=== PATIENT | male | born 1995 | race Caucasian/White ===

== ENCOUNTER 2025-05-13 09:08 | Emergency (ER) | payer BC ==
[~2025-05-13] VITALS: Ht 182.9 cm; Wt 138.8 kg
[2025-05-13 09:59] LABS: PLATELET COUNT (AUTO) 324 K/uL (150-450); RED BLOOD CELL COUNT(AUTO) 4.35 MIL/uL (4.5-6.0); RED CELL DISTRIBUTION WIDTH 14.4 % (11.5-15.0); WHITE BLOOD COUNT (AUTO) 7.2 K/uL (4.3-11.0)
[2025-05-13 10:08] LABS: CALCIUM, SERUM 8.6 mg/dL (8.5-10.1); CREATININE 0.9 mg/dL (0.6-1.3); SODIUM SERUM 142.0 mmol/L (136-145); UREA NITROGEN, BLOOD 11.0 mg/dL (7-18)
[2025-05-13 10:13] LABS: ASPARTATE AMINOTRANSFERASE 26.0 U/L (15-37); TOTAL PROTEIN, SERUM 6.7 g/dL (6.4-8.2)
[2025-05-13] MEDS: IV NS 0.9% 1,000 ML BAG IV ONE (10:15)
[2025-05-13] MEDS ORDERED: DICY10CA37 PO (10:55)
[2025-05-13 11:03] VITALS: BP 115/80; TEMP 98.4; O2SAT 98
== END 2025-05-13 11:04 | disposition home or self-care (01) ==
LOC: ER 09:26
DX: R19.7 Diarrhea, unspecified (principal); R14.0 Abdominal distension (gaseous)
CPT/HCPCS: 99283; 96360; 85025; 80048; 83690; 80076; 36415; J7030

== ENCOUNTER 2025-07-15 17:07 | Emergency (ER) | payer BC ==
[~2025-07-15] VITALS: Ht 182.9 cm; Wt 138.3 kg
[~2025-07-15 17:07] MED LIST: DICY10CA37 PO
[2025-07-15] MEDS ORDERED: IV NS 0.9% 250 ML IV ONE (18:41)
[2025-07-15] MEDS ORDERED: IOHEXOL-300 100 ML VIAL IV ONE (18:41)
[2025-07-15 18:58] LABS: PLATELET COUNT (AUTO) 294 K/uL (150-450); RED BLOOD CELL COUNT(AUTO) 4.38 MIL/uL (4.5-6.0); RED CELL DISTRIBUTION WIDTH 14.3 % (11.5-15.0); WHITE BLOOD COUNT (AUTO) 7.9 K/uL (4.3-11.0)
[2025-07-15 19:03] LABS: APPEARANCE,URINE CLEAR (CLEAR); BLOOD, URINE TRACE-INTA Ery/uL (NEGATIVE); LEUKOCYTE ESTERASE ,URINE NEGATIVE (NEGATIVE); NITRITE, URINE NEGATIVE (NEGATIVE); UGLUCOSE NEGATIVE (NEGATIVE)
[2025-07-15 19:06] LABS: CALCIUM, SERUM 8.2 mg/dL (8.5-10.1); CREATININE 0.7 mg/dL (0.6-1.3); SODIUM SERUM 143.0 mmol/L (136-145); UREA NITROGEN, BLOOD 13.0 mg/dL (7-18)
[2025-07-15 19:13] LABS: ASPARTATE AMINOTRANSFERASE 33.0 U/L (15-37); TOTAL PROTEIN, SERUM 5.8 g/dL (6.4-8.2)
[2025-07-15 19:22] LABS: ADD URINE CULTURE YES; SQUAMOUS EPITHELIAL CELL,UR Few /HPF (None Seen)
[2025-07-15] MEDS ORDERED: IBUP-1490 PO (19:25)
[2025-07-15] MEDS ORDERED: IBUPROFEN 600 MG TABLET ONE (19:32)
[2025-07-15] MEDS ORDERED: ACETAMINOPHEN ES 500 MG TABLET ONE (19:32)
[2025-07-15] MEDS: ACETAMINOPHEN ES 500 MG TABLET PO ONE (19:33)
[2025-07-15] MEDS: IBUPROFEN 600 MG TABLET PO ONE (19:33)
[2025-07-15 19:41] VITALS: BP 123/65; TEMP 98; O2SAT 98
== END 2025-07-15 19:41 | disposition home or self-care (01) ==
LOC: ER 17:11
DX: S30.11XA Contusion of abdominal wall, initial encounter (principal); W06.XXXA Fall from bed, initial encounter; Y93.89 Activity, other specified; Y92.89 Other specified places as the place of occurrence of the external cause; Y99.9 Unspecified external cause status
CPT/HCPCS: 99285; 74177; 85025; 80048; 87086; 83690; 80076; 81001; 36415; J7050; Q9967